=== PATIENT | female | born 1965 | race Caucasian/White ===

== ENCOUNTER 2017-10-20 06:37 | Outpatient (CLI) | payer MEDICAID ==
[~2017-10-20] VITALS: Ht 157.5 cm; Wt 105.5 kg
[2017-10-20 08:06] VITALS: BP 133/78; Ht 157.5 cm; Wt 105.5 kg
[2017-10-20 08:06] LABS: BASOPHILS 0.4 % (0-2); EOSINOPHILS 2.3 % (0-7); HEMATOCRIT 44.3 % (36.0-48.0); HEMOGLOBIN 14.3 g/dL (12-16); IMMATURE GRANULOCYTES 0.3 % (0-5); LYMPHOCYTES 46.6 % (15-50); MCH 34.5 pg (26.0-34.0); MCHC 32.3 g/dL (31.0-37.0); MCV 106.7 fL (80.0-100.0); MEAN PLATELET VOLUME 10.4 fL (7.4-10.4); MONOCYTES 10.7 % (2-11); NEUTROPHILS 39.7 % (40-80); PLATELET COUNT 202 10x3/uL (130-400); RBC 4.15 10x6/uL (4.00-5.40); RDW 13.7 % (11.5-14.5); WBC 7.3 10x3/uL (4.8-10.8)
[2017-10-20 08:13] LABS: INR 0.89 (0.85-1.17); PROTIME 11.6 SECONDS (11.6-15.0)
[2017-10-20 08:26] LABS: CALC OSMOLALITY 279 mosm/kg (275-300); CALCIUM 9.5 mg/dL (8.5-10.1); CARBON DIOXIDE 24.4 mmol/L (21.0-32.0); CHLORIDE - SERUM 104 mmol/L (98-107); CREATININE - SERUM 0.6 mg/dL (0.6-1.3); GLUCOSE 112 mg/dL (74-106); POTASSIUM - SERUM 4.1 mmol/L (3.5-5.1); SODIUM 139 mmol/L (136-145); UREA NITROGEN 15 mg/dL (7-18); eGFR NON AFRICAN AMERICAN > 90 mL/min (90-120)
== END 2017-10-20 13:00 | disposition home or self-care (01) ==
LOC: D.OPS 06:37
PROVIDERS: Specialist
DX: B18.2 Chronic viral hepatitis C (principal); Z01.812 Encounter for preprocedural laboratory examination